=== PATIENT | female | born 1955 | race Caucasian/White ===

== ENCOUNTER 2021-07-24 11:06 | Emergency (ER) | payer MEDICARE, MEDICAID, SELFPAY ==
--- NOTE | ~2021-07-24 | XR_ITS ---
EXAMINATION: XR CHEST CLINICAL INFORMATION: Chest pain, SOB. Question Covid symptoms. COMPARISON: Chest 09/21/2008 TECHNIQUE: Frontal view of the chest was obtained. FINDINGS: The lungs are well-expanded and clear. The heart size and pulmonary vascularity is normal. No gross bony abnormality seen. XR/XR chest 1V IMPRESSION: Unremarkable chest exam.
--- NOTE | 2021-07-24 11:12 | ECG_ITS ---
Test Reason : CHEST PAIN Blood Pressure : / mmHG Vent. Rate : 093 BPM Atrial Rate : 093 BPM P-R Int : 124 ms QRS Dur : 078 ms QT Int : 362 ms P-R-T Axes : 067 044 082 degrees QTc Int : 450 ms Normal sinus rhythm Possible Left atrial enlargement Nonspecific T wave abnormality Abnormal ECG When compared with ECG of 23-SEP-2008 13:25, Nonspecific T wave abnormality now evident in Lateral leads Referred By: Generic ED Physician Electronically Signed By:SONAM ROSE MD
[2021-07-24 12:07] VITALS: BP 203/99; PULSE 92; RESP 20; TEMP 36.7; O2SAT 94; BMI 23.4
[2021-07-24 13:36] LABS: MANUAL DIFF FLAG NO
[2021-07-24 13:37] LABS: Basophils Absolute Auto 0.1 X10*3/uL (0.0-0.2); Basophils Percent Auto 0.6 % (0-2); Eosinophils Absolute Auto 0.3 X10*3/uL (0.0-0.4); Eosinophils Percent Auto 2.9 % (0-4); Hematocrit 41.7 % (37-47); Hemoglobin 14.2 g/dl (12.0-16.0); Imm Gran Abs Auto 0.03 X10*3/uL (0.00-0.03); Imm Gran Pct Auto 0.3 % (0.0-0.4); Lymphocytes Absolute Auto 1.2 X10*3/uL (1.2-4.9); Lymphocytes Percent Auto 11.1 % (20-40); Mean Corpuscular HGB Conc 34.1 g/dl (31.0-35.0); Mean Corpuscular Hemoglobin 29.6 pg (27.0-33.0); Mean Corpuscular Volume 87.1 fL (80-98); Mean Platelet Volume 9.9 fL (9.4-12.3); Monocytes Absolute Auto 0.6 X10*3/uL (0.1-1.2); Monocytes Percent Auto 5.2 % (2-11); Neutrophils Absolute Auto 8.4 X10*3/uL (2.0-8.3); Neutrophils Percent Auto 79.9 % (45-73); Platelet Count 315 X10*3/uL (160-400); Red Blood Count 4.79 X10*6/uL (4.20-5.50); White Blood Count 10.5 X10*3/uL (4.8-10.8)
[2021-07-24 13:51] LABS: Anion Gap 16 (12-20); Blood Urea Nitrogen 11 mg/dL (9-16); Calcium 9.7 mg/dL (8.4-10.2); Carbon Dioxide 23 mmol/L (22-29); Chloride 108 mmol/L (96-108); Creatinine Clr Calc Pharmacy 33.9; Estimated Glomerular Filt Rate 46; Glucose Random 90 mg/dL (60-115); Potassium 3.8 mmol/L (3.3-5.1); Sodium 143 mmol/L (135-145)
[2021-07-24 13:53] LABS: COVID-19 Test Negative (Negative)
[2021-07-24 13:58] LABS: Troponin-I High Sensitivity 5.8 ng/L (<3.5-17.0)
[2021-07-24 15:22] LABS: TSH reflex Free T4 0.18 uIU/mL (0.32-4.0)
--- NOTE | 2021-07-24 15:43 | ED.URI ---
HPI - URI/Sore Throat General Chief Complaint: General Medical <TIANA Jeffrey - Last Filed: 07/24/21 17:54> Stated Complaint: chest pain, cough, diff breathing <TIANA Jeffrey Last Filed: 07/24/21 17:54> Time Seen by Provider: 07/24/21 14:07 <TIANA Jeffrey - Last Filed: 07/24/21 17:54> Source: patient <TIANA Jeffrey - Last Filed: 07/24/21 17:54> Mode of arrival: ambulatory <TIANA Jeffrey - Last Filed: 07/24/21 17:54> Limitations: no limitations <TIANA Jeffrey Last Filed: 07/24/21 17:54> History of Present Illness HPI Narrative: 66-year-old female with a past medical history of hypertension, hyperlipidemia, diabetes, hyperthyroidism, GERD and asthma presenting to the ED with URI complaints which include productive cough with yellow/green colored sputum with chest wall pain with coughing otherwise no pain in the chest if she is not coughing. She reports that she came to [place] a year ago from [place] and ever since has been ?stuck here because of the pandemic and family problems?. She is taking care of her mother with Alzheimer's disease and reports increased stress due to this and she has not had any of her medications for the past year since being here in [place]. Gave me a med list that includes methimazole 5 mg tablet 1 to be taken twice a day, hydrochlorothiazide 50 mg 1 to be taken daily, metformin 500 mg 1 to be taken daily, sertraline 100 mg 1-1/2 tablets to be taken daily, simvastatin 10 mg tablets to be taken daily, omeprazole 40 mg capsule 1 to be taken daily and ProAir inhaler along with ibuprofen 800mg tablet to be taken t.i.d. or p.r.n. she reports she needs all of these refilled. She denies any measured fevers, dizziness, headaches, change of vision, paresthesias, nausea/vomiting, dyspnea exertion, orthopnea, palpitations, chest pain without coughing, abdominal pain, back pain, dysuria, hematuria, black or bloody stools, diarrhea constipation, lower extremity edema or calf tenderness, focal weakness, recent travel or sick contacts or any other symptoms complaints or concerns at this time. <TIANA Jeffrey - Last Filed: 07/24/21 17:54> MD elicited complaint: cough <TIANA Jeffrey - Last Filed: 07/24/21 17:54> Pertinent past history: other (See above) <TIANA Jeffrey - Last Filed: 07/24/21 17:54> Onset (ago): day(s) (For the past 2-3 days worse today) <TIANA Jeffrey - Last Filed: 07/24/21 17:54> Consistency: constant and progressively worsening <TIANA Jeffrey - Last Filed: 07/24/21 17:54> Severity: moderate <TIANA Jeffrey - Last Filed: 07/24/21 17:54> Description of mucous: watery, yellow and green <TIANA Jeffrey - Last Filed: 07/24/21 17:54> Able to tolerate fluids by mouth: Yes <TIANA Jeffrey - Last Filed: 07/24/21 17:54> Exacerbating factors: other (Coughing) <TIANA Jeffrey - Last Filed: 07/24/21 17:54> Relieving factors: rest <TIANA Jeffrey - Last Filed: 07/24/21 17:54> Associated symptoms: denies other symptoms <TIANA Jeffrey - Last Filed: 07/24/21 17:54> Treatments prior to arrival: none <TIANA Jeffrey - Last Filed: 07/24/21 17:54> Related Data Home Medications: Previous Rx's Medication Instructions Recorded albuterol sulfate 90 mcg/actuation 2 puff INHALATION Q6H PRN #8.5 g 07/24/21 aerosol inhaler (ProAir HFA) amlodipine 10 mg tablet 10 mg PO DAILY #30 tab 07/24/21 azithromycin 250 mg tablet See Rx Instructions .ROUTE 07/24/21 .COMPLEX #6 tab codeine 10 mg-guaifenesin 100 mg/5 5 ml PO Q6H PRN #120 ml 07/24/21 mL oral liquid (Guaifenesin AC) cyclobenzaprine 10 mg tablet 10 mg PO Q8H PRN #14 tab 07/24/21 ibuprofen 800 mg tablet 800 mg PO Q8H PRN #30 tab 07/24/21 metformin 500 mg tablet 500 mg PO DAILY #30 tab 07/24/21 methimazole 5 mg tablet 5 mg PO BID #60 tab 07/24/21 omeprazole 40 mg capsule,delayed 40 mg PO DAILY #30 cap 07/24/21 release sertraline 100 mg tablet 150 mg PO DAILY #30 tab 07/24/21 simvastatin 10 mg tablet 10 mg PO DAILY #30 tab 07/24/21 <TIANA Jeffrey - Last Filed: 07/24/21 17:54> Allergies/Adverse Reactions: Allergies Allergy/AdvReac Type Severity Reaction Status Date / Time No Known Allergies Allergy Unknown NOT Verified 07/24/21 12:12 APPLICABLE <TIANA Jeffrey - Last Filed: 07/24/21 17:54> Review of Systems Review of Systems: Constitutional : No Weight loss, No Fever, No Chills, No Night Sweats, No Fatigue, No Malaise ENT/Mouth : No Hearing loss, No Ear Pain, No Nasal Congestion, No Sinus Pain, No Hoarseness, No sore throat, No Rhinorrhea, No Swallowing Difficulty Eyes: No Eye Pain, No Swelling, No Redness, No Foreign Body, No Discharge, No Vision Changes Cardiovascular : No Chest Pain, No SOB, No Dyspnea on Exertion, No Orthopnea, No Edema, No Palpitations Respiratory : Positive cough with sputum production and chest wall pain only with coughing, No Wheezing, No Smoke Exposure, No Dyspnea Gastrointestinal : No Nausea, No Vomiting, No Diarrhea, No Constipation, No abdominal Pain, No Hematochezia, No Melena Genitourinary : no irregular bleeding, No Dysuria, No Urinary Frequency, No Hematuria, No Urinary Incontinence, No Urgency, No Flank Pain, No Urinary Flow Changes, No Hesitancy Musculoskeletal : No joint pain, No Myalgias, No Joint Swelling Skin : No Skin Lesions, No rash Neuro : No Weakness, No Numbness, No Paresthesias, No Loss of Consciousness, No Dizziness, No Headache Psych : No Anxiety/Panic, No Depression, No SI/HI/AH/VH, No Social Issues, Heme/Lymph: No Bruising, No Bleeding,No Lymphadenopathy Endocrine : No Polyuria, No Polydipsia, No Temperature Intolerance <TIANA Jeffrey Last Filed: 07/24/21 17:54> Yes all other systems are reviewed and are negative <TIANA Jeffrey - Last Filed: 07/24/21 17:54> FOR[facility]LY [facility], [facility] Past Medical History Attestation statement: The following information was validated with the patient. <TIANA Jeffrey - Last Filed: 07/24/21 17:54> Medical History: Medical History Diabetes High cholesterol HTN (hypertension) Thyroid disorder <TIANA Jeffrey - Last Filed: 07/24/21 17:54> Social History Social History: Social History Advance Directives: No <TIANA Jeffrey - Last Filed: 07/24/21 17:54> Physical Exam Vital Signs: Vital Signs: Last Vital Signs Temp 98.1 F 07/24/21 12:07 Pulse 102 H 07/24/21 17:26 Resp 24 H 07/24/21 17:26 BP 193/111 H 07/24/21 17:26 Pulse Ox 95 07/24/21 17:26 Body Mass Index 23.4 vital signs have been reviewed as normal and appeared to be correct. Blood pressure hypertensive 203/99. Heart rate normal. Respiration rate normal. Temperature normal. Oxygen saturation normal. <TIANA Jeffrey - Last Filed: 07/24/21 17:54> Vital Signs: Last Vital Signs Temp 98.1 F 07/24/21 12:07 Pulse 102 H 07/24/21 17:26 Resp 24 H 07/24/21 17:26 BP 193/111 H 07/24/21 17:26 Pulse Ox 95 07/24/21 17:26 Body Mass Index 23.4 <TIANA Pedroza - Last Filed: 07/24/21 19:19> Appearance: Alert. Oriented X3. No acute distress. Head: Normal external exam. Normocephalic. Atraumatic. Eyes: PERRLA. EOMI. Conjunctiva and sclera normal. Eyelids normal. ENT: EAC normal. TM's Normal. Pharynx normal. Uvula midline. Moist mucous membranes. No trismus noted. No drooling noted. No muffled voice noted. Neck: Normal inspection. Neck supple. FROM. No adenopathy. Thyroid Normal. No meningeal signs. No neck mass noted. CVS: Normal heart rate and rhythm. Heart sound normal. Pulses normal throughout. No murmurs/rales/gallops. Respiratory: No respiratory distress. Painless inspiration. Breath sounds normal. No wheezes/rales/rhonchi noted. Chest nontender. No accessory muscle usage noted or decreased air movement noted. Abdomen: Soft and nontender. Bowel sounds normal in all 4 quadrants. No distention noted. No organomegaly noted. No visible injury noted. Back: No CVA tenderness. Full range of motion noted. No rashes/lesion/induration/fluctuance or signs of infection noted. Skin: Skin warm and dry. Normal skin color. Normal skin turgor. No rashes/lesions/lacerations noted. Extremities: No lower extremity edema. No calf tenderness is noted. Extremities exhibit normal range of motion. Extremities nontender. Neuro: Oriented X 3. No motor deficit. No sensory deficit. Reflexes normal. Normal steady gait. No focal neuro deficits noted. Vascular: + radial pulses/+ 2 distal pedal pulses/+2 dorsalis pedis b/l. Normal cap refill. No cyanosis noted to upper extremity nails and lower extremity toes nails. <TIANA Jeffrey - Last Filed: 07/24/21 17:54> Course Course Course Narrative: 14:15pm - 66-year-old female with a past medical history of hypertension, hyperlipidemia, diabetes, hyperthyroidism, GERD and asthma presenting to the ED with URI complaints which include productive cough with yellow/green colored sputum with chest wall pain with coughing otherwise no pain in the chest if she is not coughing. She moved here from [place] over a year ago and has not taken any of her medication needs a refill on methimazole 5 mg tablet 1 to be taken twice a day, hydrochlorothiazide 50 mg 1 to be taken daily, metformin 500 mg 1 to be taken daily, sertraline 100 mg 1-1/2 tablets to be taken daily, simvastatin 10 mg tablets to be taken daily, omeprazole 40 mg capsule 1 to be taken daily and ProAir inhaler along with ibuprofen 800mg tablet to be taken t.i.d. or p.r.n. - Patient had labs in triage and patient's troponin was 5.8 otherwise all other labs are within normal limits. COVID swab negative. Chest x-ray was negative for any acute processes. EKG is normal sinus rhythm with ventricular rate of 93 with left atrial enlargement with nonspecific T-wave abnormalities no acute ischemic changes are noted. Similar compared to prior EKG on 09/23/2008. Plan: Therefore at this time will have a repeat troponin at 430, TSH level added along with a BNP. I also discussed this Patient with Dr. Adkins about the patient's blood pressure medication HCTZ 50mg we are changing her to amlodipine 5 mg daily 30 day supply and will also refill all her other medications and she will be referred to primary care provider's so she can make follow-up appointment for future refills and further evaluation and treatment. Will also give Robitussin with codeine and a muscle relaxant and re-evaluate. <TIANA Jeffrey - Last Filed: 07/24/21 17:54> Reevaluation(s) Reevaluation #1: - I gave the patient an additional 5 mg of amlodipine and she will be discharged with 10 mg of amlodipine daily. - I also sent refills of all her prescriptions to the pharmacy. - she is pending repeat troponin sign-out to MIC[facility] Rod pending repeat troponin if negative patient can be discharged with instructions to follow up with primary care provider that she needs to call to establish one and to return if any new or worsening symptoms. Patient understands agrees with this plan. <TIANA Jeffrey - Last Filed: 07/24/21 17:54> Time: 17:52 <TIANA Jeffrey - Last Filed: 07/24/21 17:54> Reevaluation #2: Second troponin is negative. Discharge patient home. Viola Parker PA-C <TIANA Pedroza Last Filed: 07/24/21 19:19> MDM - URI/Sore Throat Medical Records Attestation: I reviewed the patient's medical records. <TIANA Jeffrey Last Filed: 07/24/21 17:54> Lab Data Attestation: I reviewed the patient's lab results. <TIANA Jeffrey Last Filed: 07/24/21 17:54> Result diagrams: : 07/24/21 13:30 07/24/21 13:30 <TIANA Jeffrey - Last Filed: 07/24/21 17:54> Labs: Lab Results 07/24/21 07/24/21 07/24/21 Range/Units 13:30 13:30 13:30 WBC 10.5 (4.8-10.8) X10*3/uL RBC 4.79 (4.20-5.50) X10*6/uL Hgb 14.2 (12.0-16.0) g/dl Hct 41.7 (37-47) % MCV 87.1 (80-98) fL MCH 29.6 (27.0-33.0) pg MCHC 34.1 (31.0-35.0) g/dl RDW 15.0 (11.0-16.0) % Plt Count 315 (160-400) X10*3/uL MPV 9.9 (9.4-12.3) fL Immature Gran % (Auto) 0.3 (0.0-0.4) % Neut % (Auto) 79.9 H (45-73) % Lymph % (Auto) 11.1 L (20-40) % [place] % (Auto) 5.2 (2-11) % Eos % (Auto) 2.9 (0-4) % Baso % (Auto) 0.6 (0-2) % Lymph # (Auto) 1.2 (1.2-4.9) X10*3/uL [place] # (Auto) 0.6 (0.1-1.2) X10*3/uL Eos # (Auto) 0.3 (0.0-0.4) X10*3/uL Baso # (Auto) 0.1 (0.0-0.2) X10*3/uL Abs Immat Gran (auto) 0.03 (0.00-0.03) X10*3/uL Absolute Neuts (auto) 8.4 H (2.0-8.3) X10*3/uL Absolute Nucleated RBC 0.000 (0.0-0.012) X10*3/uL Nucleated RBC % (auto) 0.0 (0.0-0.2) /100WBC Sodium 143 (135-145) mmol/L Potassium 3.8 (3.3-5.1) mmol/L Chloride 108 (96-108) mmol/L Carbon Dioxide 23 (22-29) mmol/L Anion Gap 16 (12-20) BUN 11 (9-16) mg/dL Creatinine 1.17 (0.5-1.4) mg/dL Estim Creat Clear Calc 33.9 Estimated GFR 46 Random Glucose 90 (60-115) mg/dL Calcium 9.7 (8.4-10.2) mg/dL Troponin I High Sens 5.8 (<3.5-17.0) ng/L B-Natriuretic Peptide 136 H (<100) pg/mL TSH 0.18 L (0.32-4.0) uIU/mL Free T4 1.52 (0.71-1.85) ng/dL COVID-19 ([facility]) (Negative) COVID-19 Clin Com 07/24/21 07/24/21 Range/Units 13:30 17:33 WBC (4.8-10.8) X10*3/uL RBC (4.20-5.50) X10*6/uL Hgb (12.0-16.0) g/dl Hct (37-47) % MCV (80-98) fL MCH (27.0-33.0) pg MCHC (31.0-35.0) g/dl RDW (11.0-16.0) % Plt Count (160-400) X10*3/uL MPV (9.4-12.3) fL Immature Gran % (Auto) (0.0-0.4) % Neut % (Auto) (45-73) % Lymph % (Auto) (20-40) % [place] % (Auto) (2-11) % Eos % (Auto) (0-4) % Baso % (Auto) (0-2) % Lymph # (Auto) (1.2-4.9) X10*3/uL [place] # (Auto) (0.1-1.2) X10*3/uL Eos # (Auto) (0.0-0.4) X10*3/uL Baso # (Auto) (0.0-0.2) X10*3/uL Abs Immat Gran (auto) (0.00-0.03) X10*3/uL Absolute Neuts (auto) (2.0-8.3) X10*3/uL Absolute Nucleated RBC (0.0-0.012) X10*3/uL Nucleated RBC % (auto) (0.0-0.2) /100WBC Sodium (135-145) mmol/L Potassium (3.3-5.1) mmol/L Chloride (96-108) mmol/L Carbon Dioxide (22-29) mmol/L Anion Gap (12-20) BUN (9-16) mg/dL Creatinine (0.5-1.4) mg/dL Estim Creat Clear Calc Estimated GFR Random Glucose (60-115) mg/dL Calcium (8.4-10.2) mg/dL Troponin I High Sens 6.5 (<3.5-17.0) ng/L B-Natriuretic Peptide (<100) pg/mL TSH (0.32-4.0) uIU/mL Free T4 (0.71-1.85) ng/dL COVID-19 ([facility]) Negative (Negative) COVID-19 Clin Com See Note <TIANA Jeffrey - Last Filed: 07/24/21 17:54> Lab Results 07/24/21 07/24/21 07/24/21 Range/Units 13:30 13:30 13:30 WBC 10.5 (4.8-10.8) X10*3/uL RBC 4.79 (4.20-5.50) X10*6/uL Hgb 14.2 (12.0-16.0) g/dl Hct 41.7 (37-47) % MCV 87.1 (80-98) fL MCH 29.6 (27.0-33.0) pg MCHC 34.1 (31.0-35.0) g/dl RDW 15.0 (11.0-16.0) % Plt Count 315 (160-400) X10*3/uL MPV 9.9 (9.4-12.3) fL Immature Gran % (Auto) 0.3 (0.0-0.4) % Neut % (Auto) 79.9 H (45-73) % Lymph % (Auto) 11.1 L (20-40) % [place] % (Auto) 5.2 (2-11) % Eos % (Auto) 2.9 (0-4) % Baso % (Auto) 0.6 (0-2) % Lymph # (Auto) 1.2 (1.2-4.9) X10*3/uL [place] # (Auto) 0.6 (0.1-1.2) X10*3/uL Eos # (Auto) 0.3 (0.0-0.4) X10*3/uL Baso # (Auto) 0.1 (0.0-0.2) X10*3/uL Abs Immat Gran (auto) 0.03 (0.00-0.03) X10*3/uL Absolute Neuts (auto) 8.4 H (2.0-8.3) X10*3/uL Absolute Nucleated RBC 0.000 (0.0-0.012) X10*3/uL Nucleated RBC % (auto) 0.0 (0.0-0.2) /100WBC Sodium 143 (135-145) mmol/L Potassium 3.8 (3.3-5.1) mmol/L Chloride 108 (96-108) mmol/L Carbon Dioxide 23 (22-29) mmol/L Anion Gap 16 (12-20) BUN 11 (9-16) mg/dL Creatinine 1.17 (0.5-1.4) mg/dL Estim Creat Clear Calc 33.9 Estimated GFR 46 Random Glucose 90 (60-115) mg/dL Calcium 9.7 (8.4-10.2) mg/dL Troponin I High Sens 5.8 (<3.5-17.0) ng/L B-Natriuretic Peptide 136 H (<100) pg/mL TSH 0.18 L (0.32-4.0) uIU/mL Free T4 1.52 (0.71-1.85) ng/dL COVID-19 ([facility]) (Negative) COVID-19 Clin Com 07/24/21 07/24/21 Range/Units 13:30 17:33 WBC (4.8-10.8) X10*3/uL RBC (4.20-5.50) X10*6/uL Hgb (12.0-16.0) g/dl Hct (37-47) % MCV (80-98) fL MCH (27.0-33.0) pg MCHC (31.0-35.0) g/dl RDW (11.0-16.0) % Plt Count (160-400) X10*3/uL MPV (9.4-12.3) fL Immature Gran % (Auto) (0.0-0.4) % Neut % (Auto) (45-73) % Lymph % (Auto) (20-40) % [place] % (Auto) (2-11) % Eos % (Auto) (0-4) % Baso % (Auto) (0-2) % Lymph # (Auto) (1.2-4.9) X10*3/uL [place] # (Auto) (0.1-1.2) X10*3/uL Eos # (Auto) (0.0-0.4) X10*3/uL Baso # (Auto) (0.0-0.2) X10*3/uL Abs Immat Gran (auto) (0.00-0.03) X10*3/uL Absolute Neuts (auto) (2.0-8.3) X10*3/uL Absolute Nucleated RBC (0.0-0.012) X10*3/uL Nucleated RBC % (auto) (0.0-0.2) /100WBC Sodium (135-145) mmol/L Potassium (3.3-5.1) mmol/L Chloride (96-108) mmol/L Carbon Dioxide (22-29) mmol/L Anion Gap (12-20) BUN (9-16) mg/dL Creatinine (0.5-1.4) mg/dL Estim Creat Clear Calc Estimated GFR Random Glucose (60-115) mg/dL Calcium (8.4-10.2) mg/dL Troponin I High Sens 6.5 (<3.5-17.0) ng/L B-Natriuretic Peptide (<100) pg/mL TSH (0.32-4.0) uIU/mL Free T4 (0.71-1.85) ng/dL COVID-19 ([facility]) Negative (Negative) COVID-19 Clin Com See Note <TIANA Pedroza - Last Filed: 07/24/21 19:19> Imaging Data Chest x-ray: Attestation: I personally reviewed and interpreted this imaging study as follows: <TIANA Jeffrey - Last Filed: 07/24/21 17:54> Radiologist's impression: FINDINGS: The lungs are well-expanded and clear. The heart size and pulmonary vascularity is normal. No gross bony abnormality seen. XR/XR chest 1V IMPRESSION: Unremarkable chest exam. <TIANA Jeffrey - Last Filed: 07/24/21 17:54> ECG Data Attestation: I personally reviewed and interpreted this ECG as follows: <TIANA Jeffrey - Last Filed: 07/24/21 17:54> ECG interpretation date: 07/24/21 <TIANA Jeffrey - Last Filed: 07/24/21 17:54> ECG interpretation time: 11:19 <TIANA Jeffrey - Last Filed: 07/24/21 17:54> Interpretation: EKG is normal sinus rhythm with ventricular rate of 93 with left atrial enlargement with nonspecific T-wave abnormalities no acute ischemic changes are noted. Similar compared to prior EKG on 09/23/2008. <TIANA Jeffrey - Last Filed: 07/24/21 17:54> Critical Care Time Critical Care Time Critical Care Time: Yes <TIANA Jeffrey - Last Filed: 07/24/21 17:54> Total Critical Care Time: 60 <TIANA Jeffrey - Last Filed: 07/24/21 17:54> Attestation: I personally attest to this time spent taking care of the patient <TIANA Jeffrey - Last Filed: 07/24/21 17:54> Discharge Plan Discharge Clinical Impression: Upper respiratory infection, Hypertension, Medication refill <TIANA Jeffrey - Last Filed: 07/24/21 17:54> Patient Disposition: Home, Self-Care <TIANA Jeffrey - Last Filed: 07/24/21 17:54> Instructions: Heart Healthy Diet (ED), Upper Respiratory Infection (ED), Medicine Refill (ED), Hypertension and Diabetes (ED) <TIAAN Jeffrey Last Filed: 07/24/21 17:54> Additional Instructions: I gave you a few numbers below that you can call to try to establish a primary care provider/PCP. You have enough prescriptions for 30 days you will need to follow-up with a primary care provider before that. Return if any new or worsening symptoms. <TIANA Jeffrey - Last Filed: 07/24/21 17:54> Prescriptions: New amlodipine 10 mg tablet 10 mg PO DAILY Qty: 30 RF: 0 metformin 500 mg tablet 500 mg PO DAILY Qty: 30 RF: 0 sertraline 100 mg tablet 150 mg PO DAILY Qty: 30 RF: 0 simvastatin 10 mg tablet 10 mg PO DAILY Qty: 30 RF: 0 omeprazole 40 mg capsule,delayed release(DR/EC) 40 mg PO DAILY Qty: 30 RF: 0 albuterol sulfate [ProAir HFA] 90 mcg/actuation HFA aerosol inhaler 2 puff inhalation Q6H PRN (Reason: shortness of breath or wheezing) Qty: 8.5 RF: 0 methimazole 5 mg tablet 5 mg PO BID Qty: 60 RF: 0 ibuprofen 800 mg tablet 800 mg PO Q8H PRN (Reason: pain) Qty: 30 RF: 0 cyclobenzaprine 10 mg tablet 10 mg PO Q8H PRN (Reason: Muscle spasm) Qty: 14 RF: 0 azithromycin 250 mg tablet See Rx Instructions .ROUTE .COMPLEX Qty: 6 RF: 0 codeine-guaifenesin [Guaifenesin AC] 10-100 mg/5 mL liquid 5 ml PO Q6H PRN (Reason: cold symptoms) Qty: 120 RF: 0 <TIANA Jeffrey - Last Filed: 07/24/21 17:54> Referrals: [facility] [Provider Group] - 2 days [facility] [Provider Group] - 2 days [facility] [place] [facility] - [facility] [place] [facility] [place] [facility] Digna Law MD [Primary Care Provider] - 2 days <TIANA Jeffrey - Last Filed: 07/24/21 17:54> Print Language: Lebanese <TIANA Jeffrey - Last Filed: 07/24/21 17:54>
[2021-07-24 15:55] VITALS: BP 179/114; PULSE 103
[2021-07-24] MEDS: amLODIPine Besylate 5 MG TABLET PO ×2 (15:55→17:25)
[2021-07-24 16:02] LABS: Free T4 (Free Thyroxine) 1.52 ng/dL (0.71-1.85)
[2021-07-24] MEDS: Cyclobenzaprine HCl 10 MG TABLET PO (16:27)
[2021-07-24] MEDS: guaiFEN/Codeine SF 200/20/10ML 10 ML LIQUID PO (16:27)
[2021-07-24 16:28] LABS: B Type Natriuretic Peptide 136 pg/mL (<100)
[2021-07-24 17:25] VITALS: BP 200/92; PULSE 104
[2021-07-24 17:26] VITALS: BP 193/111; PULSE 102; RESP 24; O2SAT 95
[2021-07-24 17:59] LABS: Troponin-I High Sensitivity 6.5 ng/L (<3.5-17.0)
== END 2021-07-24 19:53 | disposition home or self-care (01) ==
PROVIDERS: Physician Assistant Medical; Emergency Provider Emergency Medicine Emergency Medical Services; PCP Internal Medicine
DX: J06.9 Acute upper respiratory infection, unspecified (principal); Z76.0 Encounter for issue of repeat prescription; I10 Essential (primary) hypertension; E11.9 Type 2 diabetes mellitus without complications; E05.90 Thyrotoxicosis, unspecified without thyrotoxic crisis or storm; J45.909 Unspecified asthma, uncomplicated; Z20.822 Contact with and (suspected) exposure to COVID-19
CPT/HCPCS: 36415; 71045; 80048; 83880; 84439; 84443; 84484; 85025; 87635; 93005; 99284; 99291

== ENCOUNTER 2022-02-16 07:28 | Outpatient (REF) | payer MEDICARE, MEDICAID, SELFPAY ==
--- NOTE | ~2022-02-16 | XR_ITS ---
EXAMINATION: 1. RADIOGRAPHS STANDING AP BILATERAL KNEES 2. RADIOGRAPHS RIGHT KNEE, 2 VIEWS CLINICAL INFORMATION: Pain COMPARISON: None TECHNIQUE: Standing AP radiograph of the bilateral knees were obtained in position to lateral and patellar sunrise views of the right knee. FINDINGS: Patient is status post right total knee arthroplasty. Components are in expected orientation. There is no evidence of prosthetic loosening. No patellar joint effusion. No soft tissue swelling of the anterior right knee. Standing AP radiograph of the left knee demonstrates complete loss of medial joint space height with moderate sized osteophytes of the medial and lateral compartment. XR/XR knee standing BI IMPRESSION: -Unremarkable post arthroplasty radiographs of the right knee. 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
--- NOTE | ~2022-02-16 | XR_ITS ---
EXAMINATION: 1. RADIOGRAPHS STANDING AP BILATERAL KNEES 2. RADIOGRAPHS RIGHT KNEE, 2 VIEWS CLINICAL INFORMATION: Pain COMPARISON: None TECHNIQUE: Standing AP radiograph of the bilateral knees were obtained in position to lateral and patellar sunrise views of the right knee. FINDINGS: Patient is status post right total knee arthroplasty. Components are in expected orientation. There is no evidence of prosthetic loosening. No patellar joint effusion. No soft tissue swelling of the anterior right knee. Standing AP radiograph of the left knee demonstrates complete loss of medial joint space height with moderate sized osteophytes of the medial and lateral compartment. XR/XR knee RT 2V IMPRESSION: -Unremarkable post arthroplasty radiographs of the right knee. 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
== END 2022-02-16 07:29 | disposition home or self-care (01) ==
LOC: HO.HOSX 07:28
PROVIDERS: Visit Provider Physician Assistant
DX: M17.12 Unilateral primary osteoarthritis, left knee (principal); Z96.651 Presence of right artificial knee joint
CPT/HCPCS: 20610; 73560; 73565; 99202; J1020

== ENCOUNTER 2022-04-10 09:44 | Outpatient (REF) | payer MEDICARE, MEDICAID, SELFPAY ==
--- NOTE | ~2022-04-10 | MM_ITS ---
EXAMINATION: MM SCREENING DIGITAL BREAST TOMOSYNTHESIS, BILATERAL CLINICAL INFORMATION: Screening. Asymptomatic. The lifetime risk of breast cancer based on the Tyrer-Cuzick Model is 4%. COMPARISON: Mammography: 05/25/2011, 03/04/2010 TECHNIQUE: Digital breast tomosynthesis is performed in both the craniocaudal and mediolateral oblique views along with computer-aided detection (CAD). Synthesized 2D images are generated from the tomosynthesis. FINDINGS: There are scattered areas of fibroglandular density (ACR BI-RADS breast composition Category b). Left breast has chronic nodule with macrolobulated margins approximately 5 x 7 mm, central 11:30 position, now with associated coarse calcification suggesting fibroadenoma. There are scattered bilateral vascular calcifications. There is no significant mass or architectural abnormality or developing density. The skin contours are smooth. MM/MM tomosynthesis screening BI IMPRESSION: -No significant changes from remote prior exam. -Chronic central left breast, likely fibroadenoma. ASSESSMENT: BI-RADS 2: Benign RECOMMENDATION: Routine annual mammography screening. This patient's information was entered into a reminder system with a target due date for their next mammogram.
== END 2022-04-10 09:45 | disposition home or self-care (01) ==
LOC: HO.MAMMO 09:44
PROVIDERS: Visit Provider Nurse Practitioner Family
DX: Z12.31 Encounter for screening mammogram for malignant neoplasm of breast (principal)
CPT/HCPCS: 77063; 77067

== ENCOUNTER 2022-05-12 14:42 | Outpatient (REF) | payer MEDICARE, MEDICAID, SELFPAY ==
--- NOTE | ~2022-05-12 | CT_ITS ---
EXAMINATION: CT CHEST SCREENING CLINICAL INFORMATION: Nicotine dependence, smoker with 1 pack per day 50 years. COMPARISON: CT chest 12/10/2008, chest x-ray 08/02/2021. TECHNIQUE: Multidetector volumetric CT imaging of the chest is performed without contrast using low dose technique. Additional 2D coronal and sagittal reformatted images and axial 3D maximum intensity projection (MIP) images are generated on the CT workstation. This CT examination was performed using dose optimization techniques as appropriate, variously including the following: *Automated exposure control *Adjustment of mA and/or kV according to patient size (this includes techniques or standardized protocols for targeted exams where dose is matched to indication/reason for exam; i.e. extremities or head) *Use of iterative reconstruction technique DLP: 39 mGy-cm FINDINGS: LUNGS: The lungs are well expanded and clear of acute pneumonic process. There is a 3 mm nodule left lower lobe axial image 33/4, a 4 mm nodule right middle lobe axial image 39/4. No additional nodules are visualized. There is plate-like atelectasis right middle and both lung bases. No acute consolidation seen. MEDIASTINUM: The thyroid lobes are symmetric and normal. The central trachea and the bronchi are widely patent. No pericardial effusion is seen. The heart size and the great vessels are normal caliber. Small shotty lymph nodes are seen in the mediastinum with the largest short axis precarinal lymph node measuring 6 mm axial image 23/3. PLEURA: There is no pleural effusion. No pleural mass or thickening. AXILLA: The axilla and the chest wall appear normal. UPPER ABDOMEN: The visualized liver, spleen, pancreas, and bilateral adrenal glands are unremarkable. OSSEOUS STRUCTURES: No lytic or sclerotic process seen. There is moderate ventral spondylosis mid dorsal spine. CT/CT lung screening IMPRESSION: Inflated lungs without acute process. There are 2 pulmonary nodules, the largest measuring 4 mm. ASSESSMENT: Lung-RADS category 2: Benign. RECOMMENDATION: Low-dose annual CT chest followup.
== END 2022-05-12 14:43 | disposition home or self-care (01) ==
LOC: HO.CT 14:42
PROVIDERS: PCP Nurse Practitioner Family; Visit Provider Physician Assistant Medical
DX: R91.8 Other nonspecific abnormal finding of lung field (principal); F17.210 Nicotine dependence, cigarettes, uncomplicated
CPT/HCPCS: 71271; G0296

== ENCOUNTER → 2022-06-15 12:53 | Outpatient (BNVA) | payer MEDICARE, MEDICAID, SELFPAY | PROVIDERS: PCP Nurse Practitioner Family; Visit Provider Physician Assistant | DX: Z01.818 Encounter for other preprocedural examination (principal); M17.12 Unilateral primary osteoarthritis, left knee | CPT/HCPCS: 99202 ==

== ENCOUNTER 2022-06-20 06:14 | Day surgery (SDC) | payer MEDICARE, MEDICAID, SELFPAY ==
[2022-06-13 12:05] VITALS: BP 179/78; PULSE 88; RESP 20; O2SAT 100; BMI 23.0
--- NOTE | 2022-06-13 12:19 | HO.ANESPROP2 ---
HPI - Anesthesia Eval Consult details Narrative: 67yo F for Left Knee Replacement Total PCP cleared s/p R TKA 12 years ago [facility] Active Problems Active Problems: All Active Problems (Updated 06/12/22 @ 10:45 by Migdalia Perez RN) Osteoarthritis of left knee (Acute) Personal history of nicotine dependence (Acute) Past Medical History Medical History Diabetes High cholesterol HTN (hypertension) Mild intermittent asthma Personal history of nicotine dependence Pulmonary nodule Smoker Thyroid disorder Family History Family history of problems with anesthesia: No Surgical History Surgical History History of colonoscopy History of left oophorectomy (~2007) History of total right knee replacement (~2008) History of umbilical hernia repair (~2007) History of Problems with Anesthesia: No Social History Social History Household Members: Children Household Members Other:: mother Housing: Apartment Are you a primary urgent care technician to a significant other at home: No Do you presently have visiting nurse or other home services: No Alcohol intake: current Alcohol intake frequency: holidays/special occasions only Patient Tobacco Use Status: Current everyday Tobacco user Tobacco use type: Cigarette Cigarettes Per Day: 1 Years Smoked: 50 Second Hand Smoke Exposure: No Substance Use Type: Marijuana service: No Current occupational status: unemployed Narrative Narrative: No recent illness No CP/SOB with activity Meds Allergies Allergy/AdvReac Type Severity Reaction Status Date / Time Penicillins Allergy Rash Verified 06/20/22 06:18 Home Medications Medication Instructions Recorded Confirmed Last Taken Type lisinopril 10 mg tablet 10 mg PO DAILY 05/23/22 06/15/22 Unknown History calcium carbonate 600 mg calcium 1 tab PO DAILY 06/12/22 06/15/22 Unknown History (1,500 mg) tablet fluticasone propionate 50 2 spray intranasal DAILY 06/12/22 06/15/22 Unknown History mcg/actuation nasal spray,suspension methimazole 10 mg tablet 1 tab PO DAILY 06/12/22 06/15/22 Unknown History simvastatin 20 mg tablet 1 tab PO QPM 06/12/22 06/15/22 Unknown History cholecalciferol (vitamin D3) 1,250 1 cap PO QWEEK 06/13/22 06/15/22 Unknown History mcg (50,000 unit) capsule Exam Exam Date and Time: June 13, 2022 1219 Height,Weight and Vital Signs: Height 5 ft Weight 53.524 kg Last Vital Signs Pulse 88 06/13/22 12:05 Resp 20 06/13/22 12:05 BP 179/78 H 06/13/22 12:05 Pulse Ox 100 06/13/22 12:05 O2 Del Method 06/13/22 12:05 Pertinent Lab Results Pertinent Lab Results: CBC and BMP at outside facility all WNL except Creat = 1.34 (H) Narrative Narrative: EKG 05/2022 SA @ 78 Airway Mallampati Class: II TM Dist: >3cm Neck ROM: Full Loose/Missing/Broken Teeth: Yes (Missing throughout) Heart: RRR Lungs: CTAB Assessment and Plan Assessment Anesthesia Assessment: Anesthesia Plan Discussed, Smoking Cess. Discussed and PAT Visit Final Anesthetic Review Family History of Problems with Anesthesia: No History of Problems with Anesthesia: No
--- NOTE | 2022-06-13 12:54 | ECG_ITS ---
Test Reason : preop Blood Pressure : / mmHG Vent. Rate : 076 BPM Atrial Rate : 076 BPM P-R Int : 122 ms QRS Dur : 074 ms QT Int : 366 ms P-R-T Axes : 060 036 072 degrees QTc Int : 411 ms Sinus rhythm with marked sinus arrhythmia Otherwise normal ECG When compared with ECG of 24-JUL-2021 11:19, Nonspecific T wave abnormality no longer evident in Lateral leads Referred By: Michael Pulido Electronically Signed By:
[2022-06-13 15:13] LABS: MRSA Nasal PCR NEGATIVE (Negative); SA Nasal PCR NEGATIVE (Negative)
[2022-06-20] VITALS (25 sets, daily range): BP systolic 103–162; BP diastolic 63–86; PULSE 55–93; RESP 10–20; TEMP 36.1–36.6; O2SAT 95–100
--- NOTE | ~2022-06-20 | XR_ITS ---
EXAMINATION: XR KNEE, LEFT CLINICAL INFORMATION: Status post total knee arthroplasty. COMPARISON: Standing AP knees 02/16/2022. TECHNIQUE: Portable AP and portable lateral views of the left knee are obtained. FINDINGS: There is been total knee arthroplasty. The hardware is intact. There is no fracture or dislocation or destructive process. There is expected gas in the joint capsule and subcutaneous space and overlying skin zaria. XR/XR knee LT 2V IMPRESSION: Status post left knee total arthroplasty. Hardware intact.
[2022-06-20 06:37] LABS: COVID-19 Test Negative (Negative)
[2022-06-20] MEDS: Lactated Ringers 1,000 ML 100 ML IVCONT ×3 (06:38→19:52)
[2022-06-20 07:06] LABS: Hematocrit 35.9 % (37.0-47.0); Hemoglobin 12.1 g/dl (12.0-16.0)
--- NOTE | 2022-06-20 07:10 | PHA.MEDREC ---
Pharmacy Consult ? Medication Reconciliation Pharmacy has completed the medication reconciliation. Reviewed med rec done by nursing
--- NOTE | 2022-06-20 07:11 | PC.NURSE ---
allergy to pcn and reaction of a rash per pt told to dr. fernandez. okay to proceed with ancef as ordered.
--- NOTE | 2022-06-20 07:31 | HO.ANESPROP2 ---
[facility] Active Problems Active Problems: All Active Problems (Updated 06/12/22 @ 10:45 by Migdalia Perez RN) Osteoarthritis of left knee (Acute) Personal history of nicotine dependence (Acute) Past Medical History Medical History Diabetes High cholesterol HTN (hypertension) Mild intermittent asthma Personal history of nicotine dependence Pulmonary nodule Smoker Thyroid disorder Functional capacity: independent ambulation Patient : No Family History Family history of problems with anesthesia: No Surgical History Surgical History History of colonoscopy History of left oophorectomy (~2007) History of total right knee replacement (~2008) History of umbilical hernia repair (~2007) History of Problems with Anesthesia: No Social History Social History Household Members Other:: mother Housing: Apartment Are you a primary critical care physician assistant to a significant other at home: No Do you presently have visiting nurse or other home services: No Alcohol intake: current Alcohol intake frequency: holidays/special occasions only Patient Tobacco Use Status: Current everyday Tobacco user Tobacco use type: Cigarette Cigarettes Per Day: 1 Years Smoked: 50 Smoked in Last 30 Days: Yes Patient Interested in Nicotine Replacement: Yes Patient Given Instructions on How to Stop Smoking: Yes Date Education Initiated: 06/13/22 Second Hand Smoke Exposure: No Use of substances other than those prescribed or required for medical reasons: Yes Substance Use Frequency: Occasionally Have you been hit, kicked, punched, or otherwise hurt by someone within the past year? If so, by whom?: No Are you DNR?: No Advance Directives: No Advance Directives Information Provided: Yes Advance Directives on File: No Recently lost weight without trying: Yes How much weight loss: 2-13 pounds Eating poorly because of decreased appetite: No Nutrition screen score: 3 Nutrition Risks: No Nutritional Risk Patient : No Poor oral hygiene: No (Intact) Meds Allergies Allergy/AdvReac Type Severity Reaction Status Date / Time Penicillins Allergy Rash Verified 06/20/22 06:18 Active Medications: Current Medications Albuterol Sulfate (Albuterol Sulfate (0.083%) 2.5 Mg/3 Ml Vial.Neb) 2.5 mg INHALE ONCE PRN PRN Reason: Shortness of Breath/Wheezing Lactated Ringer's (Lr) 1,000 mls @ 100 mls/hr IVCONT .Q10H CAITIE Last Admin: 06/20/22 06:38 Dose: 100 mls/hr Home Medications Medication Instructions Recorded Confirmed Last Taken Type lisinopril 10 mg tablet 10 mg PO DAILY 05/23/22 06/15/22 Unknown History calcium carbonate 600 mg calcium 1 tab PO DAILY 06/12/22 06/15/22 Unknown History (1,500 mg) tablet fluticasone propionate 50 2 spray intranasal DAILY 06/12/22 06/15/22 Unknown History mcg/actuation nasal spray,suspension methimazole 10 mg tablet 1 tab PO DAILY 06/12/22 06/15/22 Unknown History simvastatin 20 mg tablet 1 tab PO QPM 06/12/22 06/15/22 Unknown History cholecalciferol (vitamin D3) 1,250 1 cap PO QWEEK 06/13/22 06/15/22 Unknown History mcg (50,000 unit) capsule Exam Exam Date and Time: June 20, 2022 0731 Height,Weight and Vital Signs: Height 5 ft Weight 53.524 kg Last Vital Signs Temp 97.9 F 06/20/22 07:04 Pulse 79 06/20/22 07:09 Resp 20 06/20/22 07:09 BP 162/86 H 06/20/22 07:09 Pulse Ox 98 06/20/22 07:09 O2 Del Method 06/20/22 07:09 Pertinent Lab Results Pertinent Lab Results: Laboratory Tests 06/13/22 06/13/22 06/20/22 13:25 Unknown 06:14 Hgb Hct Nasal Screen MRSA (PCR) NEGATIVE Nasal S. aureus Screen NEGATIVE Nasal MRSA/S.aureus Interp SEE NOTE COVID-19 ([facility]) Negative COVID-19 Clin Com See Note Blood Type O Positive Antibody Screen NEGATIVE 06/20/22 06:47 Hgb 12.1 Hct 35.9 L Nasal Screen MRSA (PCR) Nasal S. aureus Screen Nasal MRSA/S.aureus Interp COVID-19 ([facility]) COVID-19 Clin Com Blood Type Antibody Screen Airway Mallampati Class: II TM Dist: >3cm Neck ROM: Full Heart: RRR Lungs: CTA Assessment and Plan Final Anesthetic Review Family History of Problems with Anesthesia: No History of Problems with Anesthesia: No NPO: Yes ASA Class: II Final Preanesthetic Review: No Changes in Pt Med Stat, Meds/Allgs Chart Reviewed, Consent Obtained/Reviewed and Anes Risks/Benef Reviewed Patient Risk: Low Procedure Risk: Low Anesthetic Plan Anesthetic Plan: GA
--- NOTE | 2022-06-20 09:24 | P.BOP_ITS ---
Brief Operative Note Date of Service: 06/20/22 Pre-op diagnosis: left knee OA Post-op diagnosis: same Procedure: Left TKA Implants: [place] Triathalon press fit posterior stabilized 10/15/09/29a Surgeon: Michael Pulido MD Anesthesia: GETA and regional Was an Wool Hat Flanger used for this Procedure?: Yes Wool Hat Flanger: Deborah Moraes Estimated blood loss (mL): 200 IV fluids (mL): 1,000 Pathology: other Condition: stable Disposition: PACU
--- NOTE | 2022-06-20 09:24 | MHC.SHP ---
Pre-Procedural Eval Section A Date of Service: 06/28/22 The patient is an INPATIENT: No Changes since office visit: Yes Patient answered all questions; No Cold of Flu in the past 2 weeks, No New Medical Problems and No Changes in Medication The History & Physical has been completed within 30 days and I have reviewed it.: Yes Section B Chief Complaint: RT TKA Allergies: Allergies Allergy/AdvReac Type Severity Reaction Status Date / Time Penicillins Allergy Rash Verified 06/20/22 06:18 Plan I have reviewed the history and physical and performed a pertinent physical examination on my patient. No changes have occurred unless specified.
--- NOTE | 2022-06-20 09:25 | P.OP_ITS ---
Operative Note Operative Note Date of Service: 06/20/22 Narrative: Date of Service: 06/20/22 Pre-op diagnosis: left knee OA Post-op diagnosis: same Procedure: Left TKA Implants: [place] Triathalon press fit posterior stabilized 10/15/09PS/29a Surgeon: Michael Pulido MD Anesthesia: GETA and regional Was an Commissions Coordinator used for this Procedure?: Yes Commissions Coordinator: Deborah Moraes Estimated blood loss (mL): 200 IV fluids (mL): 1,000 Pathology: other Condition: stable Disposition: PACU Procedure in detail: The patient was brought to the operating room and prepped and draped in standard sterile fashion. A time-out was called to identify proper site proper procedure proper surgeon and IV antibiotics were administered. 1 g of IV tranexamic acid was administered. I began by making a midline incision to the retinaculum and performed a medial parapatellar arthrotomy. The patella was translated laterally and the knee was flexed up.The medial compartment was completely eburnated. I performed a small medial peel and resected the infrapatellar fat pad. Shirland's line was then used to drill my intramedullary femoral guide and my distal femur cut of 12 mm (10 deg flexion contracture) was made in 5 degrees of valgus while protecting the soft tissues. I then measured a # 1 femur and placed my cutting guide and made my anterior posterior and chamfer cuts protecting the soft tissues at all times. I then made my box but removing the PCL. Once I was satisfied with my cuts I turned my attention to the tibia. I removed the meniscus medially and laterally and , using an external cutting guide, in line with the tibial crest and the third ray, I made my distal tibial cut in 0 deg slope of while protecting the PCL the posterior soft tissues at all times. An extension block was used to confirm appropriate amount of bony resection. I then sized a #1 tibia and once I was satisfied that there was complete tibial coverage I placed my trial and with the trial femur in place took the knee through range of motion. I was satisfied with the extension and flexion as well as the stability at 0, 30 and 90 degrees. I then turned my attention to the patella where I removed 1 cm from the undersurface of the patella and then trialed a 29a patellar button. Again the knee was taken t hrough range of motion I was satisfied with the tracking. I then returned to the femur and drilled my femoral lug holes and prepared the tibia. A femoral bone plug was placed and the knee was irrigated copiously. I then press fit the patella, tibia and femur in standard fashion. I trialed different inserts until I selected a #10 insert. The final insert was placed and a 3 minutes iodine soak with local TXA was performed. A Werewolf cautery wand was used to maintain hemostasis over the capsule and meniscal beds, the gutters and peripatellar soft tissues. The knee was then closed with a running Quill suture, a 3 0 Vicryl and zaria on the skin. Patient was then placed in sterile dressing and brought to recovery room in stable condition there were no known complications.
[2022-06-20] MEDS: oxyCODONE HCl Immed Release 5 MG TABLET PO (11:06)
[2022-06-20] MEDS: Acetaminophen 325 MG TABLET 650 MG PO (11:11)
[2022-06-20] MEDS: fentaNYL citrate/PF 100 MCG/2 ML VIAL 25 MCG IVPUSH ×2 (12:00→12:40)
[2022-06-20] MEDS: ceFAZolin Sodium/Dextrose,Iso 2 GM/50 ML PIGGYBACK IV (13:43)
[2022-06-20] MEDS: ondansetron HCL 4 MG/2 ML VIAL IVPUSH (14:45)
--- NOTE | 2022-06-20 16:18 | MHC.CM.PN ---
IMM ADDRESSED, ORIGINAL TO PATIENT, COPY TO CHART PATIENT REPORTS SHE LIVES WITH HER SON, KAM INDEPENDENT AT HOME AND COMMUNITY NO DME OR HOME SERVICES COVFARHAD PATRICK'S X3 MRNA WILL HAVE NEW PCP FROM [facility]- PCP NOW JOHN MACKAY HCP COMPLETED, ORIGINAL AND COPIES TO PATIENT, COPY TO CHART, AND COPY UPLOADED TO [facility] FAMILY WILL TRANSPORT D/C PLAN: HOME SELF-CARE vs PT REC
[2022-06-20] MEDS: Docusate Sodium 100 MG CAPSULE PO (19:53)
[2022-06-20] MEDS: oxyCODONE HCl ER 10 MG TAB.ER.12H PO (19:53)
[2022-06-20] MEDS: Celecoxib 200 MG CAPSULE PO (19:53)
[2022-06-21] VITALS (7 sets, daily range): BP systolic 115–174; BP diastolic 62–74; PULSE 66–77; RESP 17–20; TEMP 36.4–37; O2SAT 95–100
[2022-06-21] MEDS: oxyCODONE HCl Immed Release 5 MG TABLET PO (04:46)
[2022-06-21] MEDS: Lactated Ringers 1,000 ML 100 ML IVCONT (05:20)
[2022-06-21 06:34] LABS: MANUAL DIFF FLAG NO
[2022-06-21 06:43] LABS: Basophils Percent Auto 0.2 % (0-2); Eosinophils Percent Auto 0.2 % (0-4); Hematocrit 32.2 % (37.0-47.0); Hemoglobin 10.8 g/dl (12.0-16.0); Imm Gran Abs Auto 0.03 X10*3/uL (0.00-0.03); Imm Gran Pct Auto 0.3 % (0.0-0.4); Lymphocytes Absolute Auto 2.3 X10*3/uL (1.2-4.9); Lymphocytes Percent Auto 20.3 % (20-40); Mean Corpuscular HGB Conc 33.5 g/dl (31.0-35.0); Mean Corpuscular Hemoglobin 29.5 pg (27.0-33.0); Mean Platelet Volume 10.4 fL (9.4-12.3); Monocytes Absolute Auto 1.1 X10*3/uL (0.1-1.2); Monocytes Percent Auto 9.6 % (2-11); Neutrophils Absolute Auto 7.9 x10*3/uL (2.0-8.3); Neutrophils Percent Auto 69.4 % (45-73); Platelet Count 320 X10*3/uL (160-400); Red Blood Count 3.66 X10*6/uL (4.20-5.50); Red Cell Distribution Width 14.4 % (11.0-16.0); White Blood Count 11.4 X10*3/uL (4.8-10.8)
[2022-06-21 06:54] LABS: Anion Gap 15 (12-20); Blood Urea Nitrogen 13 mg/dL (9-16); Calcium 9.2 mg/dL (8.4-10.2); Carbon Dioxide 24 mmol/L (22-29); Chloride 107 mmol/L (96-108); Estimated Glomerular Filt Rate 50; Glucose Fasting 92 mg/dL (60-99); Potassium 4.7 mmol/L (3.3-5.1); Sodium 141 mmol/L (135-145)
--- NOTE | 2022-06-21 07:37 | P.PNOP_ITS ---
Subjective Subjective Date of Service: 06/21/22 Interval history: POD1 s/p LTKA. No overnight events. Pain is well controlled. No additional complaints. Physical Exam Vital Signs: Vital Signs: Last Vital Signs Temp 98.6 F 06/21/22 07:18 Pulse 77 06/21/22 07:18 Resp 18 06/21/22 07:18 BP 174/73 H 06/21/22 07:18 Pulse Ox 100 06/21/22 07:18 O2 Del Method 06/21/22 07:18 O2 Flow Rate 2 06/21/22 07:18 Oxygen Flow Rate 2 06/20/22 10:06 BMI result Body Mass Index 23.0 Const: General: cooperative, healthy appearing and no acute distress Resp: Effort & Inspection: normal respiratory effort and able to speak in complete sentences Cardio: Rate: regular rate Peripheral pulses: Peripheral pulses 2+ th roughout GI: Palpation (GI): Soft to palpation Skin: Lesions: no lesions Rashes: no rashes Extrem: Other: Left knee Aquacel is clean, dry, and intact. NVI. Procedures Date of Service Date of Service: 06/21/22 Progress Note: A&P Assessment and plan (1) Status post total left knee replacement: Status: Acute Plan Continue pain mgmnt Begin ASA for dvt ppx begin PT for LT TKA Dispo planning-PT, pain mgmnt Time Spent With Patient Time: Total time spent is greater than 50% in coordination of care (as documented) at patient's floor/unit and/or counseling patient: Quality Stroke Does the patient have a stroke diagnosis?: No VTE Prior VTE?: No VTE Risk Level:: Medical - moderate - high VTE Device Contraindication: N/A - Device Ordered VTE Drug Contraindication: N/A - Med Ordered
--- NOTE | 2022-06-21 08:41 | HO.POSTANES ---
Post Anesthesia Evaluation Post Anesthesia Evaluation Vital Signs: Vital Signs Temp Pulse Resp BP Pulse Ox O2 Del Method O2 Flow Rate 06/21/22 07:18 98.6 F 77 18 174/73 H 100 Nasal Cannula 2 06/21/22 03:59 97.8 F 74 17 128/69 97 Room Air 06/20/22 23:41 97.4 F 61 17 124/79 98 Room Air Anesthesia: Spinal and Nerve Block Mental Status: Awake Pain Control: Satisfactory Nausea/Vomiting: None Hydration: Adequate Anesthesia-Related Issues: No Anes. Related Issues
[2022-06-21] MEDS: Omeprazole 40 MG CAPSULE.DR PO (09:09)
[2022-06-21] MEDS: Aspirin 325 MG TABLET PO ×2 (09:09→20:11)
[2022-06-21] MEDS: Docusate Sodium 100 MG CAPSULE PO ×2 (09:09→20:10)
[2022-06-21] MEDS: Sertraline HCL 50 MG TABLET 150 MG PO (09:10)
[2022-06-21] MEDS: oxyCODONE HCl ER 10 MG TAB.ER.12H PO ×2 (09:10→20:11)
[2022-06-21] MEDS: Celecoxib 200 MG CAPSULE PO ×2 (09:11→20:10)
[2022-06-21] MEDS: ondansetron HCL 4 MG/2 ML VIAL IVPUSH (12:02)
--- NOTE | 2022-06-21 13:16 | MHC.CM.PN ---
PATIENT WANTS TO RETURN HOME WITH [facility] AND NOT DC TO SNF REFERRAL PLACED. CASE MANAGEMENT FOLLOWING
[2022-06-21] MEDS: 0.9 % Sodium Chloride Flush 3 ML SYRINGE IVFLUSH ×2 (15:24→20:10)
[2022-06-22] VITALS: BP 108/56; PULSE 78; RESP 17; TEMP 36.4; O2SAT 95
[2022-06-22 03:40] VITALS: BP 141/59; PULSE 81; RESP 17; TEMP 36.4; O2SAT 97
[2022-06-22 06:14] LABS: MANUAL DIFF FLAG NO
[2022-06-22 06:26] LABS: Basophils Percent Auto 0.3 % (0-2); Eosinophils Absolute Auto 0.1 X10*3/uL (0.0-0.4); Eosinophils Percent Auto 0.7 % (0-4); Hematocrit 27.3 % (37.0-47.0); Hemoglobin 9.1 g/dl (12.0-16.0); Imm Gran Abs Auto 0.08 X10*3/uL (0.00-0.03); Imm Gran Pct Auto 0.7 % (0.0-0.4); Lymphocytes Absolute Auto 2.4 X10*3/uL (1.2-4.9); Lymphocytes Percent Auto 20.4 % (20-40); Mean Corpuscular HGB Conc 33.3 g/dl (31.0-35.0); Mean Corpuscular Hemoglobin 29.1 pg (27.0-33.0); Mean Corpuscular Volume 87.2 fL (80.0-98.0); Mean Platelet Volume 10.7 fL (9.4-12.3); Monocytes Absolute Auto 1.2 X10*3/uL (0.1-1.2); Monocytes Percent Auto 10.2 % (2-11); Neutrophils Percent Auto 67.7 % (45-73); Platelet Count 279 X10*3/uL (160-400); Red Blood Count 3.13 X10*6/uL (4.20-5.50); Red Cell Distribution Width 14.2 % (11.0-16.0); White Blood Count 11.8 X10*3/uL (4.8-10.8)
[2022-06-22 07:14] LABS: Anion Gap 14 (12-20); Blood Urea Nitrogen 11 mg/dL (9-16); Calcium 8.5 mg/dL (8.4-10.2); Carbon Dioxide 23 mmol/L (22-29); Chloride 108 mmol/L (96-108); Creatinine Clr Calc Pharmacy 37.7; Estimated Glomerular Filt Rate 53; Glucose Fasting 81 mg/dL (60-99); Sodium 141 mmol/L (135-145)
[2022-06-22 07:59] VITALS: BP 135/66; PULSE 86; RESP 16; TEMP 36.8; O2SAT 95
[2022-06-22] MEDS: oxyCODONE HCl ER 10 MG TAB.ER.12H PO (08:36)
[2022-06-22] MEDS: Sertraline HCL 50 MG TABLET 150 MG PO (08:36)
[2022-06-22] MEDS: Docusate Sodium 100 MG CAPSULE PO (08:36)
[2022-06-22] MEDS: Celecoxib 200 MG CAPSULE PO (08:36)
[2022-06-22] MEDS: Omeprazole 40 MG CAPSULE.DR PO (08:37)
[2022-06-22] MEDS: Aspirin 325 MG TABLET PO (08:37)
[2022-06-22] MEDS: 0.9 % Sodium Chloride Flush 3 ML SYRINGE IVFLUSH (08:37)
--- NOTE | 2022-06-22 08:42 | P.DS_ITS ---
DS: Providers Provider Date of Service: 06/22/22 Primary care physician: Linda Welch DS: Diagnosis Discharge Diagnosis (1) Status post total left knee replacement: Status: Acute DS: Summary Hospital Course Hospital Course: The patient underwent a successful left total knee arthroplasty, they were transferred to PACU and then to the floor to recover. During their stay, their vitals were stable, afebrile at 97.6. Labs were unremarkable, H/H 9.1/827.3. POD 1 they were started on Aspirin 325mg po bid for DVT ppx, they also received Physical Therapy services twice a day. Prior to discharge, their dressing was clean dry and intact and the plan was to be discharged home with VNA services. Time Spent with Patient Time attestation: Total time spent providing and/or coordinating discharge services: Discharge coordination time: Less than 30 minutes Quality: Safe Use of Opioids Does Pt have an Active Cancer Diagnosis on the Problem List?: No Quality: Stroke Does the patient have a stroke diagnosis?: No Physical Exam Vital Signs: Vital Signs: Last Vital Signs Temp 98.3 F 06/22/22 07:59 Pulse 86 06/22/22 07:59 Resp 16 06/22/22 07:59 BP 135/66 06/22/22 07:59 Pulse Ox 95 06/22/22 07:59 O2 Del Method 06/22/22 07:59 O2 Flow Rate 1.5 06/22/22 07:59 Oxygen Flow Rate 2 06/20/22 10:06 BMI result Body Mass Index 23.0 Const: General: cooperative, healthy appearing and no acute distress Resp: Effort & Inspection: normal respiratory effort and able to speak in complete sentences Cardio: Rate: regular rate Peripheral pulses: Peripheral pulses 2+ throughout GI: Palpation (GI): Soft to palpation Skin: Lesions: no lesions Rashes: no rashes Extrem: Other: Left knee Aquacel is clean, dry, and intact. Able to dorsiflex and plantarflex. NVI. DS: Data Data Completed and Pending Pending studies at discharge: Pending at discharge 06/20/22 08:30 Surgical [PTH] Routine Labs on day of discharge: Laboratory Results - last 24 hr 06/22/22 06/22/22 05:26 05:26 WBC 11.8 H RBC 3.13 L Hgb 9.1 L Hct 27.3 L MCV 87.2 MCH 29.1 MCHC 33.3 RDW 14.2 Plt Count 279 MPV 10.7 Immature Gran % (Auto) 0.7 H Neut % (Auto) 67.7 Lymph % (Auto) 20.4 [place] % (Auto) 10.2 Eos % (Auto) 0.7 Baso % (Auto) 0.3 Lymph # (Auto) 2.4 [place] # (Auto) 1.2 Eos # (Auto) 0.1 Baso # (Auto) 0.0 Abs Immat Gran (auto) 0.08 H Absolute Neuts (auto) 8.0 Absolute Nucleated RBC 0.000 Nucleated RBC % (auto) 0.0 Sodium 141 Potassium 4.0 Chloride 108 Carbon Dioxide 23 Anion Gap 14 BUN 11 Creatinine 1.04 Estim Creat Clear Calc 37.7 Estimated GFR 53 Fasting Glucose 81 Calcium 8.5 D Discharge Plan Discharge Patient Disposition: Home, Self-Care Referrals: Deborah Moraes PA-C [Physician Curriculum And Instruction Specialist] - 2 Weeks (07/06/22 11:30 [facility]geons Deborah Moraes PA-C) Discharge Medications: New docusate sodium 100 mg Capsule 100 mg PO BID 7 Days Qty: 14 0RF acetaminophen 325 mg Tablet 650 mg PO Q6H PRN (Reason: Pain, Mild (Pain Scale 1-3)) 30 Days Qty: 240 0RF aspirin 325 mg Tablet 325 mg PO BID 42 Days Qty: 84 0RF oxycodone 5 mg Tablet 5 mg PO Q4H PRN (Reason: Pain, Moderate (Pain Scale 4-6) 7 Days Qty: 42 0RF Rx Instructions: Partial Fill upon patient request. Continued amlodipine 10 mg tablet 10 mg PO DAILY Qty: 30 0RF sertraline 100 mg tablet 150 mg PO DAILY Qty: 30 0RF omeprazole 40 mg capsule,delayed release(DR/EC) 40 mg PO DAILY Qty: 30 0RF albuterol sulfate [ProAir HFA] 90 mcg/actuation HFA aerosol inhaler 2 puff inhalation Q6H PRN (Reason: shortness of breath or wheezing) Qty: 8.5 0RF calcium carbonate 600 mg calcium (1,500 mg) tablet 1 tab PO DAILY simvastatin 20 mg tablet 1 tab PO QPM methimazole 10 mg tablet 1 tab PO DAILY fluticasone propionate 50 mcg/actuation spray,suspension 2 spray intranasal DAILY cholecalciferol (vitamin D3) 1,250 mcg (50,000 unit) capsule 1 cap PO QWEEK lisinopril 10 mg tablet 10 mg PO DAILY (DME) walker Misc See Rx Instructions .MEDSUPPLY Qty: 1 0RF Rx Instructions: Folding Front wheeled walker Discontinued ibuprofen 800 mg tablet 800 mg PO Q8H PRN (Reason: pain) Qty: 30 0RF Discharge Orders: Discharge Order (Routine); Ordered 06/22/22 Ordered By: Erna Salas Activity Restrictions/Additional Instructions: Physical Therapy for Total knee arthroplasty: WBAT, gait training, ROM 0-12, quad strength * Limit stair climbing * No showering, no tub bath-keep dressing clean, dry and intact * No driving x6 weeks * Continue Aspirin twice a day x 6 weeks * Follow up with [facility] Orthopedics in 2 weeks: 07/06/22 @ 11:30 am
[2022-06-22 08:56] VITALS: BP 135/66; PULSE 86; O2SAT 95
--- NOTE | 2022-06-22 09:00 | MHC.CM.PN ---
HOME TODAY WITH [facility] RN AWARE OF PLAN
--- NOTE | 2022-06-22 09:25 | W.MHC.F2F ---
Service Date Service Date: 06/22/22 Encounter Date of encounter: 06/22/22 Reasons for Services Signs and symptoms assessed: Pt. is considered homebound due to recent surgery. Unable to drive, poor balance, poor gait mechanics. Reason for physical therapy: home safety and mobility, therapeutic exercises, restore joint function, gait/transfer training, assess need for DME and ADL training Homebound: Leaving the home is medically contraindicated at this time without the asist of a device and/or another person due th the listed conditions above and below. Reason homebound: unsteady gait / fall risk, leg weakness, pain with ambulation, pain with transfers, poor balance / fall risk and unable to drive Homebound supporting statement: Pt. is considered homebound due to recent surgery. Unable to drive, poor balance, poor gait mechanics. Certification: Based on the above findings, I certify that this patient is confined to the home and needs intermittent correction care, physical therapy and/or speech therapy, or continues to need occupational therapy. The patient is under my care, and I have initiated the establishment of the plan of care. The patient will be followed by a physician who will periodically review the plan of care.
[2022-06-22 11:21] VITALS: BP 143/73; PULSE 75; RESP 16; TEMP 36.7; O2SAT 98
[2022-06-22] MEDS: oxyCODONE HCl Immed Release 5 MG TABLET PO (12:36)
[2022-06-22] MEDS: Acetaminophen 325 MG TABLET 650 MG PO (12:36)
== END 2022-06-22 14:02 | disposition home or self-care (01) ==
LOC: HO.SSS 07:44 → HO.S3 14:39
PROVIDERS: Physician Assistant; PCP Nurse Practitioner Family; Visit Provider Orthopaedic Surgery
PROC: (CPT 27447; principal; 2022-06-20 07:30)
DX: M17.12 Unilateral primary osteoarthritis, left knee (principal); Z96.651 Presence of right artificial knee joint; I10 Essential (primary) hypertension; E78.00 Pure hypercholesterolemia, unspecified; J45.20 Mild intermittent asthma, uncomplicated; E05.00 Thyrotoxicosis with diffuse goiter without thyrotoxic crisis or storm; R91.1 Solitary pulmonary nodule; F17.210 Nicotine dependence, cigarettes, uncomplicated; E11.9 Type 2 diabetes mellitus without complications; Z79.84 Long term (current) use of oral hypoglycemic drugs; Z79.51 Long term (current) use of inhaled steroids; Z79.82 Long term (current) use of aspirin; Z79.899 Other long term (current) drug therapy; Z88.0 Allergy status to penicillin; F12.90 Cannabis use, unspecified, uncomplicated; Z20.822 Contact with and (suspected) exposure to COVID-19
CPT/HCPCS: 27447; 36415; 73560; 80048; 85014; 85018; 85025; 86850; 86900; 86901; 87635; 87640; 87641; 88305; 88311; 93005; 97110; 97116; 97162; C1776; J0690; J1100; J1170; J2250; J2405; J2795; J3010

== ENCOUNTER → 2022-07-06 11:13 | Outpatient (BNVA) | payer MEDICARE, MEDICAID, SELFPAY | PROVIDERS: PCP Nurse Practitioner Family; Visit Provider Physician Assistant | DX: Z47.1 Aftercare following joint replacement surgery (principal); Z96.652 Presence of left artificial knee joint | CPT/HCPCS: 99212 ==

== ENCOUNTER 2022-07-28 11:00 | Outpatient (RCR) | payer MEDICARE, MEDICAID, SELFPAY ==
--- NOTE | 2022-07-06 12:16 | MHC.PT.EP ---
[facility] [place] Office [place] Office [place] Office [address] [phone] F: [phone] F: [phone] F: [phone] F: [phone] Physical Therapy Plan of Care Date of Evaluation: Date of Surgery: 06/20/22 Diagnosis: S/P LEFT TKA 06/20/22 Assessment: 67 YO FEMALE REF TO PT S/P LEFT TKA ON 06/20/22. SHE RESIDES W HER SON IN A 3RD FLOOR APT W STAIRS ONLY AND IS CURRENTLY AMB W A W/WALKER . OBJECTIVE FINDINGS: LIMITED AROM Lt KNEE, TIGHT PSOAS MM STEPHAN AND DECR ANKLE DF STEPHAN; DECR STRENGTH IN PROX / LUMBOPELVIC AND Lt LE, POST-OP PAIN IN LEFT KNEE ,AND HEALING ANT Lt KNEE INCISION. FUNCTIONALLY, Pt IS AMB W A W/WALKER- SHE HAS COMPENSATORY GAIT, MODIFIED STAIR MGMT, DECR STANDING, SLEEPING, AND DECR HELIO TO ADLs REQ Lt KNEE FLEX. Pt IS A VERY GOOD PT CANDIDATE TO GUIDE HER IN HER POST-OP TKR COURSE, ADDRESSING THE ABOVE FINDINGS, PAIN MGMT, AND MAXIMIZING FUNCTIONAL INDEPENDENCE. Frequency and Duration: The patient will be seen 2 X wk X 10 wks Short Term Goals: *Pt'S LEFT KNEE PAIN DECR TO 2-3/10 *Pt INCREASE Lt KNEE ROM -> 0* EXTEN AND PROGRESSIVELY TO 120* FLEX *INCR FLEXINB IN PSOAS/ CALF MM TO IMPROVE EFFICIENCY OF GAIT ON LEVEL AND STAIRS *REDUCE Rt LE EDEMA AND MONITOR/ ADDRESS SCAR MOB NEEDED Long-Term Goals: Pt INDEP W HEP PROGRESSION AND SELF-SX MGMT STRATEGIES IN 10 WKS Pt RESUME REG ADLs EVIDENT W IMPROVED LEFI SCORE BY 8-10 POINTS IN 10 WKS Pt INCR LEFT LE STRENGTH BY 1 GRADE IN 10 WKS Treatment Plan: Modalities to reduce pain, spasms and effusion. Manual therapy to restore motion and function. Therapeutic exercise to improve strength and flexibility. Neuromuscular re-education for posture and balance. Therapeutic activities to return to functional activities of daily living. Electronically signed by: Crystal Hayward,PT Please sign and return to therapist. Thank you for your referral.
--- NOTE | 2022-09-12 15:09 | MHC.PT.DC ---
[facility] [place] Office [place] Office [place] Office [address] Dino Abbott [address] [phone] F: [phone] F: [phone] F: [phone] F: [phone] Physical Therapy Discharge Report Diagnosis: S/P LEFT TKA 06/20/22 Date of Surgery: 06/20/22 Date of Evaluation: 07/06/22 Date of Discharge: 09/12/22 Treatments to Date: 4 Cancellations to Date: 5 No Shows to Date: 2 Discharge Status: Improved Function Independent with HEP Visit Non-compliance Discharge Summary: AT LAST ATTENDED PT APPT, Pt NOTED NO PAIN IN HER LEFT KNEE- SHE HAD WFL AROM LEFT KNEE AND DEMON A MORE EFFICIENT GAIT PATTERN- SHE HAD POOR ATTENDANCE WITH LAST SCHED PT APPTS AND Pt IS D/C AT THIS TIME. Electronically signed by: SHILPA NICKERSON,PT Please sign and return to therapist. Thank you for your referral.
== END 2022-09-12 15:08 | disposition home or self-care (01) ==
LOC: HO.PT 11:00
PROVIDERS: Visit Provider Physician Assistant
DX: Z47.1 Aftercare following joint replacement surgery (principal); Z96.652 Presence of left artificial knee joint
CPT/HCPCS: 97110; 97140; 97162; 97530

== ENCOUNTER → 2022-08-03 13:53 | Outpatient (BNVA) | payer MEDICARE, MEDICAID, SELFPAY | PROVIDERS: PCP Nurse Practitioner Family; Visit Provider Physician Assistant | DX: Z47.1 Aftercare following joint replacement surgery (principal); Z96.652 Presence of left artificial knee joint | CPT/HCPCS: 99212 ==

== ENCOUNTER 2022-11-02 08:44 | Outpatient (REF) | payer MEDICARE, MEDICAID, SELFPAY ==
--- NOTE | ~2022-11-02 | XR_ITS ---
EXAMINATION:XR knee standing BI, XR knee LT 2V CLINICAL INFORMATION: Reason for Exam M25.569 - Pain in unspecified knee COMPARISON: 2021 TECHNIQUE: Bilateral frontal standing, left lateral and patella sunrise view FINDINGS: BONES: No fracture or dislocation is present. JOINTS: There is total knee replacement prosthesis device, both femoral and tibial component of which is properly positioned maintaining normal alignment's. No radiologic evidence of device loosening. Patella properly positioned. SOFT TISSUE: Normal XR/XR knee LT 2V IMPRESSION: Status post total knee replacement. The prosthesis is stable properly positioned..
--- NOTE | ~2022-11-02 | XR_ITS ---
EXAMINATION:XR knee standing BI, XR knee LT 2V CLINICAL INFORMATION: Reason for Exam M25.569 - Pain in unspecified knee COMPARISON: 2021 TECHNIQUE: Bilateral frontal standing, left lateral and patella sunrise view FINDINGS: BONES: No fracture or dislocation is present. JOINTS: There is total knee replacement prosthesis device, both femoral and tibial component of which is properly positioned maintaining normal alignment's. No radiologic evidence of device loosening. Patella properly positioned. SOFT TISSUE: Normal XR/XR knee standing BI IMPRESSION: Status post total knee replacement. The prosthesis is stable properly positioned..
== END 2022-11-02 08:45 | disposition home or self-care (01) ==
LOC: HO.HOSX 08:44
PROVIDERS: Visit Provider Orthopaedic Surgery
DX: M25.562 Pain in left knee (principal); Z96.652 Presence of left artificial knee joint
CPT/HCPCS: 73560; 73565